=== PATIENT | female | born 1960 | race Caucasian/White ===

== ENCOUNTER 2017-08-31 09:25 | Day surgery (SDC) | payer BC ==
[~2017-08-31] VITALS: Ht 175.3 cm; Wt 74.5 kg
[2017-08-31] VITALS (10 sets, daily range): BP systolic 92–108; BP diastolic 62–76; PULSE 62–85; TEMP 98.7
[2017-08-31] MEDS ORDERED: COREG 3.123.125 MG/T PO (09:42)
[2017-08-31] MEDS ORDERED: ASPIRIN 81M81 MG/TA2 PO (09:42)
[2017-08-31 09:53] LABS: HEMATOCRIT 41.1 % (37.0-47.0); HEMOGLOBIN 14.2 g/dl (12.5-16.0); MEAN CELL VOLUME 89 fl (80.0-100.0); MEAN CORPUSCULAR HEMOGLOBIN 31 pg (27.0-31.0); MEAN CORPUSCULAR HGB CONC 35 g/dl (33.0-37.0); MEAN PLATELET VOLUME 9.7 fl (7.4-10.4); PLATELET COUNT 205 K/mm3 (130-400); RED BLOOD COUNT 4.63 M/mm3 (4.10-5.30); REDCELL DISTRIBUTION WIDTH-CV 12.5 % (11.5-14.5)
[2017-08-31 10:03] LABS: CALCIUM 9.4 mg/dL (8.4-10.2); CREATININE, serum 0.97 mg/dL (0.52-1.25); POTASSIUM 4.4 mmol/L (3.4-5.0)
== END 2017-08-31 16:15 | disposition home or self-care (01) ==
LOC: COL.CAR 09:25
PROVIDERS: Internal Medicine Cardiovascular Disease
DX: I42.9 Cardiomyopathy, unspecified (principal); R94.31 Abnormal electrocardiogram [ECG] [EKG]; R00.2 Palpitations; I50.9 Heart failure, unspecified
CPT/HCPCS: C1769; C1887; J1644; J2250; J3010; J7030; Q9967

== ENCOUNTER 2019-08-28 20:15 | Emergency (ER) | payer BC ==
[~2019-08-28] VITALS: Ht 172.7 cm; Wt 77.3 kg
[~2019-08-28 20:15] MED LIST: ASPIRIN 81M81 MG/TA2 PO; COREG 3.123.125 MG/T PO
[2019-08-28 20:21] VITALS: TEMP 98.3
[2019-08-28 21:03] LABS: BASO # 0.1 (0.0-0.2); BASO % 0.6 % (0.0-2.0); EOS # 0.1 (0.0-0.7); EOS % 0.8 % (0-4.0); GRAN # 4.2 (1.4-6.5); HEMATOCRIT 39.9 % (37.0-47.0); HEMOGLOBIN 13.3 g/dl (12.5-16.0); LYMPH # 3.8 (1.2-3.4); MEAN CELL VOLUME 89 fl (80.0-100.0); MEAN CORPUSCULAR HEMOGLOBIN 30 pg (27.0-31.0); MEAN CORPUSCULAR HGB CONC 33 g/dl (33.0-37.0); MEAN PLATELET VOLUME 9.2 fl (7.4-10.4); MONO # 0.7 (0.1-0.6); MONO % 8.4 % (1.7-9.3); PLATELET COUNT 238 K/mm3 (130-400); RED BLOOD COUNT 4.51 M/mm3 (4.10-5.30); REDCELL DISTRIBUTION WIDTH-CV 12.6 % (11.5-14.5)
[2019-08-28 21:14] LABS: ALANINE AMINOTRANSFERASE 16 U/L (4-34); ALBUMIN 4.2 gm/dL (3.5-5.0); ALKALINE PHOSPHATASE 68 U/L (50-136); ANION GAP 8 mmol/L (7-16); AST,SGOT 24 U/L (15-37); BILIRUBIN,TOTAL 0.6 mg/dL (0.0-1.0); BLOOD UREA NITROGEN 26 mg/dL (7-17); CALCIUM 9.6 mg/dL (8.4-10.2); CARBON DIOXIDE 28 mmol/L (22-30); CHLORIDE 102 mmol/L (98-107); CREATININE, serum 0.93 (0.52-1.25); GLUCOSE 108 mg/dL (74-106); LIPASE 123 U/L (23-300); POTASSIUM 4.1 mmol/L (3.4-5.0); SODIUM 137 mmol/L (137-145); TOTAL PROTEIN 7.4 gm/dL (6.4-8.2)
[2019-08-28 21:15] LABS: C-REACTIVE PROTEIN < 0.5 mg/dL (0.0-0.9)
[2019-08-28 21:25] LABS: TROPONIN-I < 0.012 ng/mL (0.000-0.035)
[2019-08-28] MEDS ORDERED: PROTONIX 40MG T40 MG PO (22:01)
[2019-08-28 22:05] VITALS: BP 103/64; PULSE 79
== END 2019-08-28 22:17 | disposition home or self-care (01) ==
LOC: COL.ER 20:15
PROVIDERS: Emergency Medicine
DX: R07.89 Other chest pain (principal); I42.9 Cardiomyopathy, unspecified; Z79.82 Long term (current) use of aspirin

== ENCOUNTER 2020-01-10 15:35 | Outpatient (RCR) | payer BC ==
[~2020-01-10 15:35] MED LIST changes: +PROTONIX 40MG T40 MG PO
== END 2020-01-13 16:26 | disposition home or self-care (01) ==
LOC: COL.CR 15:35
DX: I50.22 Chronic systolic (congestive) heart failure (principal)

== ENCOUNTER 2020-10-02 20:06 | Emergency (ER) | payer BC ==
[~2020-10-02] VITALS: Ht 172.7 cm; Wt 77.3 kg
[2020-10-02 20:08] VITALS: TEMP 99.3
[2020-10-02 20:19] LABS: HEMATOCRIT 41.4 % (37.0-47.0); HEMOGLOBIN 13.3 g/dl (12.5-16.0); MEAN CELL VOLUME 91 fl (80.0-100.0); MEAN CORPUSCULAR HEMOGLOBIN 29 pg (27.0-31.0); MEAN CORPUSCULAR HGB CONC 32 g/dl (33.0-37.0); MEAN PLATELET VOLUME 9.6 fl (7.4-10.4); PLATELET COUNT 210 K/mm3 (130-400); RED BLOOD COUNT 4.53 M/mm3 (4.10-5.30)
[2020-10-02 20:32] LABS: ALBUMIN 3.9 gm/dL (3.5-5.0); ALKALINE PHOSPHATASE 68 U/L (50-136); ANION GAP 16 mmol/L (7-16); BILIRUBIN,TOTAL 0.6 mg/dL (0.0-1.0); BLOOD UREA NITROGEN 23 mg/dL (7-17); CALCIUM 8.9 mg/dL (8.4-10.2); CHLORIDE 109 mmol/L (98-107); CREATINE KINASE 113 U/L (30-135); CREATININE, serum 1.12 (0.52-1.25); GLUCOSE 285 mg/dL (74-106); LIPASE 164 U/L (23-300); MAGNESIUM 2.2 mg/dL (1.6-2.3); POTASSIUM 3.3 mmol/L (3.4-5.0); SODIUM 137 mmol/L (137-145); TOTAL PROTEIN 6.6 gm/dL (6.4-8.2)
[2020-10-02 20:37] LABS: CARBON DIOXIDE 13 mmol/L (22-30)
[2020-10-02 20:39] LABS: PARTIAL THROMBOPLASTIN TIME 25.4 SECONDS (26.0-37.0)
[2020-10-02 20:40] LABS: BAND 5 % (0-10); LYMPHOCYTE 70 % (20.0-51.0); NEUTROPHILS 20 % (42.0-75.2); PLATELET ESTIMATE NORMAL (NORMAL)
[2020-10-02 20:41] LABS: AST,SGOT 582 U/L (15-37)
[2020-10-02 20:47] LABS: ALANINE AMINOTRANSFERASE 495 U/L (4-34)
[2020-10-02 20:53] LABS: TROPONIN-I < 0.012 ng/mL (0.000-0.035)
[2020-10-02 21:25] VITALS: BP 91/62; PULSE 85
== END 2020-10-02 21:27 | disposition short-term general hospital (02) ==
LOC: COL.ER 20:06
PROVIDERS: Emergency Medicine
DX: I46.9 Cardiac arrest, cause unspecified (principal); I47.2 Ventricular tachycardia; I50.9 Heart failure, unspecified; Z98.61 Coronary angioplasty status; Z20.822 Contact with and (suspected) exposure to COVID-19; Z79.82 Long term (current) use of aspirin
CPT/HCPCS: J0282; J3010; J3480; J7060

== ENCOUNTER 2021-03-10 14:14 | Outpatient (RCR) | payer BC | END 2021-03-24 11:09 | disposition home or self-care (01) | LOC: COL.CR 14:14 | DX: I50.22 Chronic systolic (congestive) heart failure (principal); I25.2 Old myocardial infarction ==

== ENCOUNTER 2022-04-27 05:29 | Inpatient (IN) | payer BC ==
[~2022-04-27] VITALS: Ht 172.7 cm; Wt 80.9 kg
--- NOTE | 2022-05-02 09:10 | NUR ---
PATIENT ARRIVED TO UNIT IN STABLE CONDITOIN. BP LOW, BUT STABLE. JUDY STATED HER BP USUALLY RUNS ON THE LOWER END. IV ACCESS PLACED. TELE ON. EKG OFR BASELINE JUST RECIEVED FOR BASELINE PRIOR TO TIKOSYN ADMINISTRATION. PATIENT ORIENTED TO ROOM AND CALL LIGHT.
[2022-05-02 09:21] VITALS: BP 105/59; PULSE 66; TEMP 97.9
[2022-05-02] MEDS ORDERED: ATIVAN 0.50.5 MG/TAB PO (09:22)
[2022-05-02] MEDS ORDERED: ENTRESTO 24 MG1 EACH PO (09:23)
[2022-05-02] MEDS ORDERED: ZEBETA 5MG5 MG PO (09:52)
[2022-05-02] MEDS ORDERED: MAGNESIUM ELEM300 MG PO (09:54)
[2022-05-02] MEDS ORDERED: MULTIVITAMIN FO1 CAP PO (09:55)
[2022-05-02] MEDS ORDERED: COENZYME Q-10100 M1 PO (09:55)
--- NOTE | 2022-05-02 10:07 | NUR ---
called pharmacy, spoke with pharmacist. awaiting labs to populate before able to dose tikosyn.
[2022-05-02 10:27] LABS: CALCIUM 9.6 mg/dL (8.4-10.2); CREATININE, serum 0.98 mg/dL (0.57-1.11); POTASSIUM 4.3 mmol/L (3.5-4.5)
[2022-05-02 11:22] VITALS: BP 108/58; PULSE 68; TEMP 98
[2022-05-02] MEDS ORDERED: LASIX 20MG TABL20 MG PO (11:31)
[2022-05-02 16:07] VITALS: BP 104/64; PULSE 60; TEMP 98
--- NOTE | 2022-05-02 18:45 | NUR ---
PATIENT AWAKE ALERT AND ORIENTED. RESTING IN BED. PATIENT DENIES ANY NEEDS OR COMPLAINTS AT THIS TIME. PATIENT STATED SHE FEELS WELL. CALL LIGHT WITHIN REACH.
[2022-05-02 20:15] VITALS: BP 100/63; PULSE 59; TEMP 98.1
--- NOTE | 2022-05-02 23:19 | NUR ---
THIS NURSE WAS NOTIFIED REGARDING A 9 SECOND RUN OF VTACH, BUT TELE STATES THAT THE QRS IS TOO WIDE TO LOOK LIKE ACTUAL VENTRICULAR TACHYCARDIA. CHELSI WILKINS, NOTIFIED AND SUGGESTED AN EKG BE TAKEN. SINCE THE PATIENT IS ON TIKOSYN, EKG WILL BE TAKEN AROUND 2300. QTC HAS BEEN UNDER 500 SINCE STARTING TIKOSYN. MAG-2.0 AND POTASSIUM-4.3. AWAITING EKG RESULTS.
[2022-05-02 23:51] VITALS: BP 110/76; PULSE 68; TEMP 97.7
--- NOTE | 2022-05-03 02:26 | NUR ---
PATIENT IS AOX4 AND PLEASANT TO SPEAK WITH. VSS. GIVEN TIKOSYN AND EKG TAKEN, QTC 481. A PACED WITH AN ICD. 9 SEC RUN OF VTACH PER TELE, EKG TAKEN. GIVEN ATIVAN 1X, PLAN TO DISCHARGE AFTER TIKOSYN IS FINISHED HERE. BED IN LOWEST POSITION. CALL LIGHT IN PLACE.
[2022-05-03 04:34] VITALS: BP 96/63; PULSE 59; TEMP 975
[2022-05-03 06:52] LABS: CALCIUM 9.5 mg/dL (8.4-10.2); CREATININE, serum 1.02 mg/dL (0.57-1.11); MAGNESIUM 2.1 mg/dL (1.6-2.6); POTASSIUM 4.1 mmol/L (3.5-4.5)
[2022-05-03 07:49] VITALS: BP 105/67; PULSE 61; TEMP 97.5
--- NOTE | 2022-05-03 08:47 | NUR ---
DAVID met with the patient to discuss discharge plan. The patient lives in [place] with her , Miles (ph#[phone]). She reports independence with ADLs and does not have any DME. The patient's PCP is Dr. Josselin Bell and she receives her medications from [facility]. The patient does not have a DPOA-HC in EMR, but she states that she believes she has one completed and that she would have designated her . The patient plans to return home with her upon discharge. No additional needs at this time. *Discharge plan: home with *
[2022-05-03 11:28] VITALS: BP 104/65; PULSE 74; TEMP 98.1
--- NOTE | 2022-05-03 13:26 | NUR ---
Initial visit: Pt was resting and content. Pt has no needs right now. Pt appreciated the visit. Director Of Casework Department will follow up as needed.
[2022-05-03 15:33] VITALS: BP 103/60; PULSE 60; TEMP 97.7
[2022-05-03 20:20] VITALS: BP 100/74; PULSE 75; TEMP 98
--- NOTE | 2022-05-03 23:00 | NUR ---
PATIENT IS AOX4 AND PLEASANT TO SPEAK WITH. SHE STATES THAT SHE IS ENJOYING HER STAY AND SURPRISED WITH HOW WELL SHE'S BEEN CARED FOR. ENTRESTO RESTARTED TODAY AT HALF THE DOSE SHE NORMALLY TAKES, VSS. CONTINUES ON THE TIKOSYN INITIATION. CALL LIGHT IN REACH. BED IN LOWEST POSITION.
[2022-05-03 23:50] VITALS: BP 95/48; PULSE 59; TEMP 97.4
[2022-05-04 04:46] VITALS: BP 100/65; PULSE 63; TEMP 97.6
[2022-05-04 07:05] LABS: CALCIUM 9.6 mg/dL (8.4-10.2); CREATININE, serum 0.97 mg/dL (0.57-1.11); POTASSIUM 4.1 mmol/L (3.5-4.5)
[2022-05-04 08:45] VITALS: BP 98/61; PULSE 76; TEMP 97.5
--- NOTE | 2022-05-04 11:05 | NUR ---
SHIFT ASSESSMENT COMPLETED AND MORNING MEDICATIONS ADMINISTERED PER ORDER. PATIENT IS ALERT AND ORIENTED X4. DENIES PAIN. HERE FOR TIKOSYN INITATION. PENDING DISCHARGE LIKELY TODAY. AWAITING 1100 EKG. DENIES ANY NEEDS. FAMILY AT BEDSIDE. CALL LIGHT WITHIN REACH.
[2022-05-04] MEDS ORDERED: TIKOSYN0.5 MG PO (12:19)
[2022-05-04] MEDS ORDERED: ENTRESTO 24 MG1 EACH PO (12:20)
[2022-05-04 12:50] VITALS: BP 117/69; PULSE 82; TEMP 98.2
--- NOTE | 2022-05-04 14:07 | NUR ---
PATIENT DISCHARGED PER ORDER. DISCHARGE EDUCATION PROVIDED ON MEDICATIONS, FOLLOW UPS, AND DIAGNOSIS. PATIENT VERBALIZED UNDERSTANDING AND DENIES ANY FURTHER NEEDS OR QUESTIONS. IV TO RIGHT FOREARM REMOVED WITH CATHETER INTACT, MINIMAL BLEEDING NOTED, GAUZE DRESSING APPLIED.
== END 2022-05-04 14:50 | disposition home or self-care (01) | DRG 310 ==
LOC: MEDICAL 05-02 05:28
PROVIDERS: ADMIT Internal Medicine Cardiovascular Disease
DX: I47.20 Ventricular tachycardia, unspecified (principal); Z88.0 Allergy status to penicillin

== ENCOUNTER 2022-11-29 15:00 | Outpatient (RCR) | payer BC ==
[2022-11-25 08:56] VITALS: BP 90/58; PULSE 80; TEMP 97.8
[2022-11-26 09:53] VITALS: BP 88/53; PULSE 70; TEMP 97.8
[~2022-11-29] VITALS: Ht 172.7 cm; Wt 82.6 kg
[~2022-11-29 15:00] MED LIST changes: +ATIVAN 0.50.5 MG/TAB PO; +COENZYME Q-10100 M1 PO; +ENTRESTO 24 MG1 EACH PO; +INVANZ INJ1 G/VIAL IV; +LASIX 20MG TABL20 MG PO; +MAGNESIUM ELEM300 MG PO; +MULTIVITAMIN FO1 CAP PO; +TIKOSYN0.5 MG PO; +ZEBETA 5MG5 MG PO
[2022-11-29 15:03] VITALS: BP 91/59; PULSE 80; TEMP 97.6
--- NOTE | 2022-11-29 15:06 | NUR ---
PT TOLERATED PICC LINE REMOVAL WELL AND AMBULATED INDEPENDENTLY TO [facility] FOLLOWING PROCEDURE. HER DRESSING WAS CLEAN DRY AND INTACT UPON DISCHARGE AND HER VS REMAINED WNL. PT FREE FROM CONCERNS AND COMPLAINTS UPON DISCHARGE.
== END 2022-11-29 15:59 | disposition home or self-care (01) ==
LOC: EUO 15:00
DX: R11.2 Nausea with vomiting, unspecified (principal); R55 Syncope and collapse; R10.9 Unspecified abdominal pain
CPT/HCPCS: J1335